=== PATIENT | male | born 1955 | race Caucasian/White ===

== ENCOUNTER 2016-11-18 08:34 | Day surgery (SDC) | payer BC ==
[~2016-11-18 08:34] MED LIST: Midazolam 1 MG/ML 2 ML SDV ONE; Propofol 200 MG/20 ML SDV ONE; fentaNYL 100 MCG/2 ML SDV ONE
[2016-11-18] MEDS ORDERED: EPINEPHrine 1:10,000 1 MG/10 ML Syringe ONE (08:51)
[2016-11-18] MEDS ORDERED: Lactated Ringers 1,000 ML IV SCH (09:00)
[2016-11-18] MEDS ORDERED: Sodium Chloride 0.9% 5 ML Syringe FLUSH PRN (09:00)
[2016-11-18] MEDS ORDERED: Propofol 200 MG/20 ML SDV ONE (09:17)
[2016-11-18] MEDS ORDERED: Propofol 200 MG/20 ML SDV IV ONE (09:59)
[2016-11-18] MEDS ORDERED: Midazolam 1 MG/ML 2 ML SDV IV ONE (09:59)
[2016-11-18] MEDS ORDERED: fentaNYL 100 MCG/2 ML SDV IV ONE (09:59)
--- NOTE | 2016-11-18 10:38 | PCM.OPNOTE ---
- General Post-Op/Procedure Note Date of Surgery/Procedure: 11/18/16 Operative Procedure(s): Colonoscopy Findings: normal Pre Op Diagnosis: History of chronic diarrhea, strong family history of colon carcinoma Anesthesia Technique: MAC Primary Surgeon: Helder Shah Complications: None Condition: Good Free Text/Narrative:: INFORMED CONSENT: Patient is here today for elective colonoscopy. All aspects of this procedure have been discussed with the patient. All possible complications also, including possibility of perforation, infection, pain, bleeding and unknown complications. In the event of perforation patient may need to have abdominal exploration, colon resection, colostomy and even was discussed. Anesthetic complications were handled by anesthesia department. The patient understands fully well. Patient did not have any further questions for me at the end of my interview. The patient wishes for me to proceed. PREOPERATIVE DIAGNOSIS/INDICATIONS: [chronic diarrhea, strong family history of colon carcinoma] POSTOPERATIVE DIAGNOSIS: [normal] INSTRUMENT USED: Olympus videocolonoscope. ASA CLASSIFICATION: [2] ANESTHESIA: Continuous EKG, oximetry and intermittent blood pressure and respiratory monitoring were performed throughout the procedure. IV Versed and Fentanyl were administered. PROCEDURE PERFORMED: Colonoscopy POSITIONS OF PATIENT: Left lateral. RECTUM: Normal. SIGMOID COLON: Normal. DESCENDING COLON: Normal. SPLENIC FLEXURE: Normal. TRANSVERSE COLON: Normal. HEPATIC FLEXURE: Normal. ASCENDING COLON: Normal. CECUM: Normal. ILEOCECAL VALVE: Normal. BIOPSY: None. TOLERANCE: Excellent. COMPLICATIONS: None.
[2016-11-18 13:42] VITALS: BP 139/71
== END 2016-11-18 11:50 | disposition home or self-care (01) ==
LOC: KA.SDS 08:34
PROVIDERS: ATTEND Family Medicine
DX: Z80.0 Family history of malignant neoplasm of digestive organs (principal); R19.7 Diarrhea, unspecified; Z79.899 Other long term (current) drug therapy
CPT/HCPCS: 45378; J2250; J2704; J3010; J7120

== ENCOUNTER 2020-04-30 17:17 | Emergency (ER) | payer BC, MEDICARE ==
--- NOTE | 2020-04-30 17:28 | EDM.PDOC ---
ED HPI GENERAL MEDICAL PROBLEM - General Chief Complaint: General Stated Complaint: SOB Time Seen by Provider: 04/30/20 17:17 Source of Information: Reports: Patient - History of Present Illness INITIAL COMMENTS - FREE TEXT/NARRATIVE: Axel, 64-year-old male, presents emergency department today after his told him she was concerned of his oxygen saturation levels. They have used saturation monitor, that his niece had, a home health nurse stating his saturations were 88% at that time. He states that for the past 2-1/2 weeks he has had intermittent cough, clear production, denying any fever chills or other contributing factors. States he is been home for the past 2 weeks over this. He has had some improvement only to relapse again a day or 2 later. Despite the pandemic concerns and increase in the area, no formal evaluation or Covid testing was sought out. States he had met with his niece today who told him that he needs to get out and get more activity, exercise and strengthening in general., States that he was out walking at the time his called him and told him to go to the emergency department to get checked out. He is not noted to have any fever on examination nor per history. He presents here ambulatory with no symptoms exhibited. Duration: Week(s):, Constant Location: Reports: Generalized Severity: Moderate Improves with: Reports: None Worsens with: Reports: None Associated Symptoms: Reports: No Other Symptoms - Related Data Allergies Allergy/AdvReac Type Severity Reaction Status Date / Time No Known Drug Allergies Allergy NKDA Verified 04/30/20 17:25 Home Meds: Home Meds . [No Known Home Meds] 04/30/20 [History] Past Medical History Gastrointestinal History: Reports: Chronic Diarrhea (Somewhat controlled per prescription.) Social & Family History - Family History Family Medical History: No Pertinent Family History GI: Reports: Colon Polyps Oncologic: Reports: Bone, Colon, Pancreatic - Tobacco Use Tobacco Use Status *Q: Never Tobacco User - Caffeine Use Caffeine Use: Reports: None ED ROS GENERAL - Review of Systems Review Of Systems: See Below Constitutional: Reports: No Symptoms HEENT: Reports: No Symptoms Respiratory: Reports: Cough Cardiovascular: Reports: Chest Pain (Attributed to his cough, denies chest pain while out walking today.) Endocrine: Reports: No Symptoms GI/Abdominal: Reports: Diarrhea (Chronic in nature typically controlled with his medication regimen) : Reports: No Symptoms Musculoskeletal: Reports: No Symptoms Skin: Reports: No Symptoms Neurological: Reports: No Symptoms Psychiatric: Reports: No Symptoms Hematologic/Lymphatic: Reports: No Symptoms Immunologic: Reports: No Symptoms ED EXAM, GENERAL - Physical Exam Exam: See Below Free Text/Narrative:: Alert, oriented in no distress. No cyanosis nor pallor is noted. HEENT is negative discharge or deformity. Neck is soft supple with no lymphadenopathy. [place] moist mucous membranes with no erythema no exudate. Thorax is overall clear throughout fine rhonchi scattered in the lateral aspects with no crackles no wheezes. No pain is palpable nor complained of. Cardiac is S1 is 2 I do not appreciate any murmur. There is no flank pain, no abdominal discomfort, bowel sounds are present no mass is palpable. rectal deferred. There is no edema to the lower extremities. Skin is warm and dry radial pulses correlate with apical heart rate. #1 Interpretation EKG Date: 04/30/20 Time: 17:55 Rhythm: NSR Rate (Beats/Min): 82 [place]: Normal P-Wave: Present ST-T: Normal QT: Normal Comparison: NA - No Prior EKG Course - Vital Signs Last Recorded V/S: Last Vital Signs Temp 36.7 C 04/30/20 19:40 Pulse 84 04/30/20 19:40 Resp 16 04/30/20 19:40 BP 140/80 04/30/20 19:40 Pulse Ox 94 L 04/30/20 19:40 - Orders/Labs/Meds Labs: Laboratory Tests 04/30/20 04/30/20 04/30/20 Range/Units 17:39 17:39 19:16 WBC 4.15 L (5.00-10.00) 10^3/uL RBC 4.60 (4.50-6.00) 10^6/uL Hgb 14.9 (13.0-17.0) g/dL Hct 42.8 (40.0-52.0) % MCV 93.0 H (82.0-92.0) fL MCH 32.4 H (27.0-31.0) pg MCHC 34.8 (32.0-36.0) g/dL RDW 12.1 (11.5-14.5) % Plt Count 313 (150-400) 10^3/uL MPV 9.8 (7.4-10.4) fL Immature Gran % (Auto) 1.0 (0.0-5.0) % Neut % (Auto) 53.0 (50.0-70.0) % Lymph % (Auto) 33.5 (20.0-40.0) % [place] % (Auto) 9.6 H (2.0-8.0) % Eos % (Auto) 2.2 (1.0-3.0) % Baso % (Auto) 0.7 (0.0-1.0) % Neut # (Auto) 2.20 L (2.50-7.00) 10^3/uL Lymph # (Auto) 1.39 (1.00-4.00) 10^3/uL [place] # (Auto) 0.40 (0.10-0.80) 10^3/uL Eos # (Auto) 0.09 L (0.10-0.30) 10^3/uL Baso # (Auto) 0.03 (0.00-0.10) 10^3/uL Immature Gran # (Auto) 0.04 (0.00-0.50) 10^3/uL Sodium 142 (136-145) mmol/L Potassium 3.3 (3.3-5.3) mmol/L Chloride 104 (98-115) mmol/L Carbon Dioxide 26.1 (21.0-32.0) mmol/L Anion Gap 15.2 H (5-15) mmol/L BUN 13 (6-25) mg/dL Creatinine 0.89 (0.51-1.17) mg/dL Est Cr Clr Drug Dosing 78.99 mL/min Estimated GFR (MDRD) > 60 mL/min Glucose 110 H (75 - 99) mg/dL Calcium 8.4 L (8.7-10.3) mg/dL Total Bilirubin 0.6 (0.2-1.0) mg/dL AST 40 H (15-37) U/L ALT 73 (12-78) U/L Alkaline Phosphatase 81 (46-116) IU/L Troponin I < 0.04 (0.00-0.070) ng/mL Total Protein 7.2 (6.4-8.2) g/dL Albumin 2.96 L (3.00-4.80) g/dL SARS-CoV-2 (PCR) Detected H (NOT DETECT) - Re-Assessments/Exams Free Text/Narrative Re-Assessment/Exam: 04/30/20 19:04 Resting comfortably with occasional dry cough. Saturations 94%. I discussed with him the aspect of his chronic diarrhea if he ever experienced hypokalemia and had to be treated with supplement to which he denies. We talked of the overall aspects of his symptoms and I informed him at this time there is no evidence of a bacterial infection, electrolytes are in normal ranges, but in review of his chest x-ray it is likely that it is a COVID-19 viral pneumonia occurring. We are still awaiting the remainder of his laboratory analysis to determine discharge versus admission status. Free Text/Narrative Re-Assessment/Exam: 04/30/20 19:21 Coronavirus swab has been obtained and sent to lab for send out testing as Mr. Gracia is not a candidate for admission to the hospital. Departure - Departure Time of Disposition: 19:17 Disposition: Home, Self-Care 01 Condition: Good, Fair Clinical Impression: Viral pneumonia, Cough - Discharge Information *PRESCRIPTION DRUG MONITORING PROGRAM REVIEWED*: Not Applicable *COPY OF PRESCRIPTION DRUG MONITORING REPORT IN PATIENT LORI: Not Applicable Instructions: Viral Respiratory Infection, [id number], Cough, Adult Referrals: Helder Shah MD [Primary Care Provider] - Forms: ED Department Discharge Additional Instructions: You need to go home and rest, Tylenol for pain or fever. Increase your fluids specifically water make sure you are maintaining good hydration. Eat healthy well-balanced diet. COVID-19 swab was obtained during your visit here, secondary of your symptoms as well as the findings on your chest x-ray. This may take 3 to 5 days to result and you need to remain quarantined/isolation until you get test results. In the event that is negative the recommendation for a 14-day quarantine period From the time symptoms started, or minimum of 24 hours after symptoms have completely resolved without the use of any Tylenol Motrin or other medications. You need to follow-up with your clinic if not improving or worsening. There is a tendency that the longer the viral pneumonia exists the higher the incident of developing a bacterial pneumonia occurs. Contact your clinic, or public health if you have any questions regarding testing, test results and quarantine times. If significant changes worsening in your system and symptoms occurs when clinic is not available please contact the hospital. This is considered contagious until symptoms have resolved. - Problem List & Annotations (1) Cough SNOMED Code(s): 98095171 Code(s): R05 - COUGH Status: Acute (2) Viral pneumonia SNOMED Code(s): 83418804 Code(s): J12.9 - VIRAL PNEUMONIA, UNSPECIFIED Status: Acute Annotation/Comment:: Likely attributed to COVID-19 per visualization and x-ray report. - Problem List Review Problem List Initiated/Reviewed/Updated: Yes - Assessment/Plan Plan: You need to go home and rest, Tylenol for pain or fever. Increase your fluids specifically water make sure you are maintaining good hydration. Eat healthy well-balanced diet. COVID-19 swab was obtained during your visit here, secondary of your symptoms as well as the findings on your chest x-ray. This may take 3 to 5 days to result and you need to remain quarantined/isolation until you get test results. In the event that is negative the recommendation for a 14-day quarantine period From the time symptoms started, or minimum of 24 hours after symptoms have completely resolved without the use of any Tylenol Motrin or other medications. You need to follow-up with your clinic if not improving or worsening. There is a tendency that the longer the viral pneumonia exists the higher the incident of developing a bacterial pneumonia occurs. Contact your clinic, or public health if you have any questions regarding testing, test results and quarantine times. If significant changes worsening in your system and symptoms occurs when clinic is not available please contact the hospital. This is considered contagious until symptoms have resolved.
--- NOTE | 2020-04-30 17:58 | CR ---
[id number] RAD/RAD Chest PA And Lateral EXAM: RAD Chest PA And Lateral INDICATION: Cough. COMPARISON: None. DISCUSSION: Patchy areas of nonmass-like parenchymal opacification in both lungs. Findings are peripheral predominant. Appearance is consistent with pneumonia, including sequela of Covid 19. No pleural effusion or pneumothorax. Heart is normal in size. IMPRESSION: As above. Jose Alfredo Villa MD 04/30/20 [id number] Thank you for allowing us to participate in the care of your patient.
[2020-04-30 18:28] LABS: CHLORIDE,CL 104 mmol/L (98-115); SODIUM,NA 142 mmol/L (136-145)
[2020-04-30 18:57] LABS: ANION GAP 15.2 mmol/L (5-15)
[2020-04-30 21:10] VITALS: BP 140/80; PULSE 84
== END 2020-04-30 19:50 | disposition home or self-care (01) ==
LOC: KA.ED 17:17
DX: U07.1 COVID-19 (principal); J12.89 Other viral pneumonia
CPT/HCPCS: 36415; 71046; 80053; 84484; 85025; 93005; 99284; 99284-25; U0002

== ENCOUNTER 2021-01-13 08:11 | Day surgery (SDC) | payer MEDICARE, OTHER ==
[~2021-01-13 08:11] MED LIST changes: -Midazolam 1 MG/ML 2 ML SDV ONE; -Propofol 200 MG/20 ML SDV ONE; +Sodium Chloride 0.9% 10 ML Syringe FLUSH PRN; -fentaNYL 100 MCG/2 ML SDV ONE
[2021-01-13] MEDS: Lactated Ringers 1,000 ML IV SCH (08:34)
[2021-01-13] MEDS ORDERED: Propofol 200 MG/20 ML SDV ONE (09:02)
[2021-01-13] MEDS ORDERED: Midazolam 1 MG/ML 2 ML SDV ONE (09:02)
--- NOTE | 2021-01-13 09:32 | PCM.OPNOTE ---
- General Post-Op/Procedure Note Date of Surgery/Procedure: 01/13/21 Operative Procedure(s): Colonoscopy Findings: Normal colonoscopy except for moderately enlarged internal hemorrhoids. Post-Op Diagnosis: Normal colonoscopy except for moderately enlarged internal hemorrhoids. Anesthesia Technique: MAC Primary Surgeon: Helder Shah Condition: Good Free Text/Narrative:: INFORMED CONSENT: Patient is here today for elective colonoscopy. All aspects of this procedure have been discussed with the patient. All possible complications also, including possibility of perforation, infection, pain, bleeding and unknown complications. In the event of perforation patient may need to have abdominal exploration, colon resection, colostomy and even was discussed. Anesthetic complications were handled by anesthesia department. The patient understands fully well. Patient did not have any further questions for me at the end of my interview. The patient wishes for me to proceed. PREOPERATIVE DIAGNOSIS/INDICATIONS: Chronic diarrhea, rule out irritable bowel versus inflammatory bowel disease. POSTOPERATIVE DIAGNOSIS: [Normal colonoscopy, several moderately enlarged internal hemorrhoids] INSTRUMENT USED: Olympus videocolonoscope. ASA CLASSIFICATION: [2] ANESTHESIA: Continuous EKG, oximetry and intermittent blood pressure and respiratory monitoring were performed throughout the procedure. IV Versed and Fentanyl were administered. PROCEDURE PERFORMED: Colonoscopy POSITIONS OF PATIENT: Left lateral. RECTUM: Normal except for moderately enlarged internal hemorrhoids at the 5, 7 and 11:00 positions. SIGMOID COLON: Normal. DESCENDING COLON: Normal. SPLENIC FLEXURE: Normal. TRANSVERSE COLON: Normal. HEPATIC FLEXURE: Normal. ASCENDING COLON: Normal. CECUM: Normal. ILEOCECAL VALVE: Normal. BIOPSY: None. TOLERANCE: Excellent. COMPLICATIONS: None.
[2021-01-13 10:28] VITALS: BP 104/64; PULSE 60
== END 2021-01-13 11:05 | disposition home or self-care (01) ==
LOC: KA.SDS 08:11
PROVIDERS: ATTEND Family Medicine
DX: K52.9 Noninfective gastroenteritis and colitis, unspecified (principal); K64.8 Other hemorrhoids; E78.00 Pure hypercholesterolemia, unspecified; Z79.899 Other long term (current) drug therapy
CPT/HCPCS: 00811; J2250; J2704; J7120